=== PATIENT | female | born 1960 | race African-American/Black ===

== ENCOUNTER 2023-07-31 15:32 | Emergency (ER) | payer OTHER, SELFPAY ==
[2023-07-31 15:38] VITALS: BP 173/88
[2023-07-31 16:09] LABS: % Basophils 0.5 % (0-2); % Eosinophils 2.2 % (0-6); % Immature Granulocytes 0.3 % (0-0.5); % Lymphocytes 33.4 % (20.5-51.1); % Neutrophils 56.6 % (42.2-75.2); Absolute Eosinophils 0.2 10^3/uL (0-0.7); Absolute Lymphocytes 2.5 10^3/uL (1.2-3.4); Absolute Monocytes 0.5 10^3/uL (0.1-0.6); Absolute Neutrophils 4.3 10^3/uL (1.4-6.5); Hematocrit 43.8 % (37.0-47.0); Hemoglobin 15.2 g/dL (12.0-16.0); Mean Corp Hgb Conc. 34.7 g/dL (33.0-37.0); Mean Corpuscular Hgb 28.6 pg (27.0-31.0); Mean Corpuscular Volume 82.3 fL (81.0-99.0); Mean Platelet Volume 10.1 fL (7.4-10.4); Nucleated Red Blood Cells % 0 %; Platelet Count 252 10^3/uL (130-400); Red Blood Cell Count 5.32 10^6/uL (4.20-5.40); White Blood Cell Count 7.6 10^3/uL (4.8-10.8)
[2023-07-31 16:10] LABS: INR 1.03; PT 13.5 Sec (11.4-14.6)
[2023-07-31 16:11] LABS: APTT 25.3 Sec (23.4-35.0)
[2023-07-31 16:13] LABS: ALT (SGPT) 27 U/L (0-35); AST (SGOT) 28 U/L (14-36); Albumin 4.6 g/dl (3.5-5.0); Alkaline Phosphatase 81 U/L (38-126); Blood Urea Nitrogen 8 mg/dl (7-17); Calcium 10.2 mg/dl (8.4-10.2); Carbon Dioxide 25 mmol/L (22-30); Chloride 105 mmol/L (98-107); Glucose 100 mg/dl (70-99); Potassium 4.3 mmol/L (3.5-5.1); Sodium 137 mmol/L (135-145); Total Bilirubin 0.8 mg/dl (0.2-1.3); Total Protein 7.5 g/dl (6.3-8.2); eGFR > 60.00
[2023-07-31 16:17] LABS: COVID-19 Antigen Negative (Negative)
[2023-07-31 16:24] LABS: Troponin I < 0.012 ng/ml
--- NOTE | 2023-07-31 22:15 | ED.GENMED ---
History of Present Illness
General
Chief Complaint: Chest Pain
Source: patient
Exam Limitations: none
Time Seen by Provider: 07/31/23 21:50
Nursing documentation reviewed up to this point in time: agreed with
Travel History
Have you had any contact with someone who has COVID-19?: No
Do you have any symptoms of coronavirus? Fever > 100 degrees, chills, cough, shortness of breath, sore throat, loss of taste or smell, muscle aches, or headache?: Yes
Symptoms:: cough
History of Present Illness
History of Present Illness:
62-year-old female presents emergency department complaining of cough, wheezing and chest pain. Her chest pain occurs when she coughs, and feels sharp. Symptoms began yesterday.
Past History
Past History
ED Past Medical History: GERD, HTN, Hypercholesterolemia and Other (Anal fissure)
ED Past Surgical History: and Orthopedic (Arthroscopic ankle surgery)
Social History
Tobacco: Non-smoker
Alcohol: None
Drug: None
Employment: Employed
Review of Systems
Review of Systems
Allergies reviewed?: Yes
All Other Systems: Not applicable
Constitutional: Reports no symptoms
EENT: Reports no symptoms
Respiratory: Reports cough
Cardiac: Reports chest pain
ABD/GI: Reports no symptoms
: Reports no symptoms
Musculoskeletal: Reports no symptoms
Skin: Reports no symptoms
Neurological: Reports no symptoms
Endocrine: Reports no symptoms
Hematologic/Lymphatic: Reports no symptoms
Psychiatric: Reports no symptoms
Phy Exam
Physical Exam
Physical Exam:
Physical Exam
General: no apparent distress, not acutely ill
Neck: supple. no meningeal signs. normal posterior pharynx
Heart: s1/s2 regular rate and rhythm, no murmur. equal radial
pulses.
HEENT: Pupils equal round reactive to light, EOMI
Lungs: no acute respiratory distress. Wheezing bilaterally
Abdomen: normal bowel sounds. not tender. no CVAT
Neuro: alert and oriented. no focal neurological deficits cranial nerves II through XII intact
Skin: no rash
Psychiatric: well kept. interactive and cooperative
Extremities: no edema. no calf tenderness. negative homans. good distal pulses
Scores
Heart Score for Chest Pain Patients
STEMI patient?: No
History: Slightly or Non-Suspicious
ECG: Nonspecific Repolarization
Age: >45 - <65 years
Risk Factors: 1 or 2 Risk Factors
Troponin: </= Normal Limit
Heart Score for Chest Pain Patients: 3
Heart Score Risk: 2.5% MACE over next 6 weeks
Course
Orders/Labs/Results
Orders:
Orders
07/31/23 15:34
ECG [Electrocardiogram (*1)] Urgent
Reason for Study: Chest Pain
Other Reason for Exam: dizzy
EKG- Treatment ONCE
07/31/23 15:53
COVID-19 Antigen Urgent
Source: Nasal Swab
Complete Blood Count/With Diff Urgent
Comprehensive Metabolic Panel Urgent
Lipase Urgent
Comment: ADD ON
Protime/PTT Urgent
Troponin I Urgent
Influenza A+B Rapid Molecular Urgent
BALTA Source: Nasal Swab
Specimen Description:
07/31/23 20:23
CXR2 [CR Chest - 2 Views ] Urgent
Comment:
Reason For Exam: cough
07/31/23 21:51
Add On- LAB Urgent
Tests Added?: lipase
07/31/23 22:10
Ipratropium/Albuterol Sulfate [Duoneb] 3 ml INH R NOW STA
Abnormal Lab Results
07/31/23
15:53
Glucose 100 H mg/dl
(70-99)
07/31/23 15:53
07/31/23 15:53
Vital Signs
Initial and Last Documented VS:
Initial Vital Signs
Temp Pulse Resp BP Pulse Ox
98.8 F 68 18 173/88 99
07/31/23 15:38 07/31/23 15:38 07/31/23 15:38 07/31/23 15:38 07/31/23 15:38
Last Documented Vital Signs
Temp Pulse Resp BP Pulse Ox
98.8 F 64 20 137/80 97
07/31/23 15:38 07/31/23 22:27 07/31/23 22:27 07/31/23 22:27 07/31/23 22:27
MDM/Problems Addressed
Differential Diagnosis Includes:
PE, ACS, pneumonia
MDM/Problems Addressed:
62-year-old with bronchitis. No signs of pneumonia. Do not suspect ACS or PE. Patient stable for discharge. Will give prescription for albuterol inhaler.
Chronic conditions affecting care: HTN
Acute Exacerbation and/or Progression of Chronic Illness: HTN
*Radiology
Radiology exam reviewed: preliminary read by ED provider (Chest x-ray no acute findings)
*Pulse Oximetry
Patient hypoxic: no
*EKG
Interpreted by ED Provider?: Yes
EKG Intrepretation Date: 07/31/23
EKG Intrepretation Time: 15:45
Interpretation: abnormal
Comparison EKG: no comparison EKG present
Heart Rate: 63
Rate: normal
Rhythm: sinus
Swatara: normal axis
Interval: normal interval
QRS Pattern: normal QRS
Ischemia: no ischemia
*Diversified Crops Supervisor Interpretation
Rate: Diversified Crops Supervisor- N/A
*Critical Care Note
Total Time (30-74mins, 75-104mins- exclusive of procedures): Not Applicable
Data Reviewed
Review of Other/Old Records Reveals: Testing (Prior echocardiogram 04/25/2022 normal)
Source: records
Further Testing Considered But Not Given:
CT chest not indicated
Patient Management
Social determinants of health affecting care: Living situation
Escalation/DeEscalation of care consider admission/obs:
Admit not indicated
ED Attending Note
-
Portions of this chart may have been created with voice recognition software.� Occasional wrong word or��sound alike� substitutions may have occurred due to the inherent limitations of voice recognition software.
Discharge Plan
Departure
Patient Disposition: Home (Routine Discharge)
Date of Disposition: 07/31/23
Time of Disposition: 22:36
Patient with high blood pressure during this ER visit?: Yes
Condition: Good
Discharge Problem:
Acute bronchitis
Instructions: Acute bronchitis, Pleuritic Chest Pain ED
Prescriptions:
New
albuterol sulfate 90 mcg/actuation aerosol powdr breath activated
2 inh inhalation Q4H PRN (Reason: shortness of breath or wheezing) Qty: 1 0RF
Referrals:
Luis Velasquez MD [Family Provider] -
Interventions
Interventions:
*Risk Screen - Suicide Last Done: 07/31/23 15:38
*General Assessment Last Done: 07/31/23 15:38
*Neglect/Abuse Screening Last Done: 07/31/23 15:38
ED- Fall Risk Assessment Last Done: 07/31/23 22:27
*ED COVID-19 Vaccine History Last Done: 07/31/23 15:38
ED- Cardiac Assessment Last Done: 07/31/23 22:27
Discharge Date and Time
Print Language: CHINESE
[2023-07-31 22:24] LABS: Lipase 90 U/L (23-300)
[2023-07-31] MEDS: DUONEB 3 ML INH (22:24)
[2023-07-31 22:27] VITALS: BP 137/80
== END 2023-07-31 22:46 | disposition home or self-care (01) ==
LOC: EMR 15:32
PROVIDERS: EMERGENCY PHYSICIAN Emergency Medicine; FAMILY PHYSICIAN Internal Medicine
DX: J20.9 Acute bronchitis, unspecified (principal); I10 Essential (primary) hypertension
CPT/HCPCS: 99285; 94640; 71046; 80053; 83690; 84484; 85025; 85610; 85730; 87502; 87811; 93005

== ENCOUNTER → 2023-09-30 10:25 | Outpatient (REF) | payer OTHER, SELFPAY | LOC: RAD 10:25 | PROVIDERS: ATTENDING PHYSICIAN Nurse Practitioner; FAMILY PHYSICIAN Internal Medicine | DX: K82.4 Cholesterolosis of gallbladder (principal) | CPT/HCPCS: 76700 ==

== ENCOUNTER → 2024-03-12 10:05 | Outpatient (REF) | payer OTHER, SELFPAY | LOC: HWRAD 10:05 | PROVIDERS: ATTENDING PHYSICIAN Family Medicine; REFERRING PHYSICIAN Internal Medicine | DX: Z87.891 Personal history of nicotine dependence (principal) | CPT/HCPCS: 71271 ==

== ENCOUNTER → 2024-04-15 13:03 | Outpatient (REF) | payer OTHER, SELFPAY | LOC: WDC 13:03 | PROVIDERS: ATTENDING PHYSICIAN Family Medicine | DX: Z12.31 Encounter for screening mammogram for malignant neoplasm of breast (principal) | CPT/HCPCS: 77063; 77067 ==

== ENCOUNTER → 2024-04-30 08:46 | Outpatient (REF) | payer OTHER, SELFPAY | LOC: RAD 08:46 | PROVIDERS: ATTENDING PHYSICIAN Family Medicine | DX: M54.2 Cervicalgia (principal) | CPT/HCPCS: 72050 ==

== ENCOUNTER 2024-05-27 12:47 | Outpatient (RCR) | payer OTHER, SELFPAY | END 2024-05-27 23:59 | disposition home or self-care (01) | LOC: RPT 12:47 | PROVIDERS: ATTENDING PHYSICIAN Family Medicine | DX: M54.2 Cervicalgia (principal); M25.50 Pain in unspecified joint (principal); Z73.6 Limitation of activities due to disability; M54.9 Dorsalgia, unspecified; M25.512 Pain in left shoulder; M25.511 Pain in right shoulder; M25.552 Pain in left hip; M25.551 Pain in right hip; M25.562 Pain in left knee; M25.561 Pain in right knee; M25.572 Pain in left ankle and joints of left foot; M25.571 Pain in right ankle and joints of right foot; M16.0 Bilateral primary osteoarthritis of hip; M62.81 Muscle weakness (generalized) | CPT/HCPCS: 97010; 97110; 97163 ==

== ENCOUNTER 2024-06-17 10:46 | Outpatient (RCR) | payer OTHER, SELFPAY | END 2024-06-17 23:59 | disposition home or self-care (01) | LOC: RPT 10:46 | PROVIDERS: ATTENDING PHYSICIAN Family Medicine | DX: M25.50 Pain in unspecified joint (principal); M54.2 Cervicalgia; Z73.6 Limitation of activities due to disability; M54.9 Dorsalgia, unspecified; M25.512 Pain in left shoulder; M25.511 Pain in right shoulder; M25.552 Pain in left hip; M25.551 Pain in right hip; M25.562 Pain in left knee; M25.561 Pain in right knee; M25.572 Pain in left ankle and joints of left foot; M25.571 Pain in right ankle and joints of right foot; M16.0 Bilateral primary osteoarthritis of hip; M62.81 Muscle weakness (generalized) | CPT/HCPCS: 78306; 97010; 97110; 97140; A9503 ==

== ENCOUNTER 2024-07-06 14:18 | Outpatient (RCR) | payer OTHER, SELFPAY | END 2024-07-06 23:59 | disposition home or self-care (01) | LOC: RPT 14:18 | PROVIDERS: ATTENDING PHYSICIAN Family Medicine | DX: M54.2 Cervicalgia (principal); M25.50 Pain in unspecified joint (principal); M54.9 Dorsalgia, unspecified; Z73.6 Limitation of activities due to disability; M25.512 Pain in left shoulder; M25.552 Pain in left hip; M25.511 Pain in right shoulder; M25.551 Pain in right hip; M25.562 Pain in left knee; M25.561 Pain in right knee; M25.571 Pain in right ankle and joints of right foot; M25.572 Pain in left ankle and joints of left foot; M16.0 Bilateral primary osteoarthritis of hip; M62.81 Muscle weakness (generalized) | CPT/HCPCS: 97010; 97110; 97112; 97140 ==

== ENCOUNTER → 2024-08-05 08:50 | Outpatient (REF) | payer OTHER, SELFPAY | LOC: EMG 08:50 | PROVIDERS: ATTENDING PHYSICIAN Internal Medicine; FAMILY PHYSICIAN Family Medicine | DX: M79.2 Neuralgia and neuritis, unspecified (principal); R20.0 Anesthesia of skin | CPT/HCPCS: 95886; 95913 ==

== ENCOUNTER 2024-08-19 09:20 | Outpatient (RCR) | payer OTHER, SELFPAY | END 2024-08-19 23:59 | disposition home or self-care (01) | LOC: RPT 09:20 | PROVIDERS: ATTENDING PHYSICIAN Family Medicine | DX: M54.2 Cervicalgia (principal); M54.9 Dorsalgia, unspecified; Z73.6 Limitation of activities due to disability; M25.512 Pain in left shoulder; M16.0 Bilateral primary osteoarthritis of hip; M25.511 Pain in right shoulder; M25.552 Pain in left hip; M25.551 Pain in right hip; M25.562 Pain in left knee; M25.561 Pain in right knee; M25.572 Pain in left ankle and joints of left foot; M25.571 Pain in right ankle and joints of right foot; M62.81 Muscle weakness (generalized); M25.50 Pain in unspecified joint | CPT/HCPCS: 97110; 97140 ==

== ENCOUNTER → 2024-10-21 14:46 | Outpatient (REF) | payer OTHER, SELFPAY | LOC: PAVMRI 14:46 | PROVIDERS: ATTENDING PHYSICIAN Family Medicine | DX: M50.30 Other cervical disc degeneration, unspecified cervical region (principal); M54.12 Radiculopathy, cervical region | CPT/HCPCS: 72141 ==

== ENCOUNTER → 2024-12-17 08:29 | Outpatient (REF) | payer OTHER, SELFPAY | LOC: RAD 08:29 | PROVIDERS: ATTENDING PHYSICIAN Neurological Surgery; FAMILY PHYSICIAN Family Medicine | DX: M54.2 Cervicalgia (principal); M50.20 Other cervical disc displacement, unspecified cervical region | CPT/HCPCS: 72052 ==